=== PATIENT | male | born 1965 | race African-American/Black ===

== ENCOUNTER 2018-08-08 16:26 | Day surgery (SDC) | payer BC ==
[2018-08-08] MEDS ORDERED: LACTATED RINGER'S 1,000 ML IV (17:30)
[2018-08-08] MEDS ORDERED: ETOMIDATE 20 MG INJ (18:45)
[2018-08-08] MEDS ORDERED: LIDOCAINE 1% (MDV) 20 ML INJ (18:45)
[2018-08-08] MEDS ORDERED: MIDAZOLAM 1 MG/ML 2 ML INJ (18:45)
[2018-08-08] MEDS ORDERED: PROPOFOL 20 ML (18:45)
[2018-08-08] MEDS ORDERED: KETOROLAC 30 MG INJ ×2 (18:57→19:31)
[2018-08-08] MEDS: BUPIVACAINE 0.5% (SDV) 30 ML INJ (19:04)
[2018-08-08] MEDS: LIDOCAINE 2% (MDV) 20 ML INJ (19:04)
[2018-08-08] MEDS: POLYMYXIN/BACITRACIN 1L IRRIG (19:05)
[2018-08-08] MEDS: DEXAMETHASONE 4 MG/ML 1 ML INJ (19:05)
[2018-08-08] MEDS ORDERED: LABETALOL HCL 20MG INJ IV (20:00)
[2018-08-08] MEDS ORDERED: OXYCODONE/ACETAMINOPHEN (5/325) TAB PO ×2 (20:00)
[2018-08-08] MEDS ORDERED: HYDROmorphONE 1 MG/5 ML IV SYRINGE IV (20:00)
[2018-08-08] MEDS: HYDROmorphONE 1 MG/5 ML IV SYRINGE IV (20:05)
== END 2018-08-08 20:36 | disposition home or self-care (01) ==
LOC: SDS 16:26
DX: M21.612 Bunion of left foot (principal); I10 Essential (primary) hypertension
CPT/HCPCS: 28299